=== PATIENT | male | born 1940 | race Hispanic/Latino ===

== ENCOUNTER 2021-12-10 18:09 | Emergency (ER) | payer MEDICARE ==
[2021-12-10 22:08] LABS: Basophils % (Auto) 0.6 % (0.0-1.8); Eosinophils # (Auto) 0.2 K/mm3 (0.0-0.4); Eosinophils % (Auto) 3.3 % (0.0-4.3); Hematocrit 43.1 % (35.5-45.6); Hemoglobin 14.9 gm/dl (11.8-15.2); Lymphocytes % (Auto) 19.2 % (13.4-35.0); Mean Corpuscular HGB Conc 35 % (32-34); Mean Corpuscular Volume 85 fl (84-94); Monocytes # (Auto) 0.7 K/mm3 (0.0-0.8); Monocytes % (Auto) 13.8 % (0.0-7.3); Platelet Count 126 K/mm3 (140-440); Red Blood Count 5.08 M/mm3 (3.65-5.03); Red Cell Distribution Width 16.1 % (13.2-15.2)
[2021-12-10 22:23] LABS: Calcium 9.5 mg/dL (8.4-10.2)
[2021-12-10 23:09] VITALS: BP 137/67
--- NOTE | 2021-12-10 23:29 | Emergency Department Report ---
ED General Adult HPI - General Chief complaint: Hyperglycemia Stated complaint: WEAKNESS/BLOOD SUGAR OVER 600 Time Seen by Provider: 12/10/21 20:06 Source: patient, EMS Mode of arrival: Stretcher Limitations: No Limitations - History of Present Illness Initial comments: 81-year-old male with history of type 2 diabetes, self-reported chronic kidney disease (patient states his GFR is "about 32" sent in from his primary care doctor's office for evaluation of hyperglycemia. Patient has no symptoms. He states that he had blood work drawn by his doctor today and when he received a call from his doctor's office, he was told that his sugar was greater than 600. He admittedly administered 16 units of insulin to himself prior to arrival. He denies any chest pain shortness of breath difficulty breathing or palpitations. Reports overall decreased p.o. intake due to some ongoing family stressors. Denies any thoughts of hurting himself or others, no auditory visual loose Nations. Pain 0-10. MD Complaint: hyperglycemia -: Gradual Radiation: other (none) Severity scale (0 -10): 0 Quality: other (none) Consistency: other (none) Improves with: other (none) Worsens with: other (none) Associated Symptoms: other Treatments Prior to Arrival: other (humalog insulin 16units) - Related Data Allergies Allergy/AdvReac Type Severity Reaction Status Date / Time No Known Allergies Allergy Unverified 12/10/21 18:28 ED Review of Systems ROS: Stated complaint: WEAKNESS/BLOOD SUGAR OVER 600 Other details as noted in HPI Comment: All other systems reviewed and negative Constitutional: no symptoms reported Eyes: as per HPI ENT: as per HPI Respiratory: no symptoms reported Cardiovascular: as per HPI Endocrine: no symptoms reported Gastrointestinal: as per HPI Genitourinary: as per HPI Musculoskeletal: as per HPI Skin: as per HPI Neurological: as per HPI Psychiatric: as per HPI Hematological/Lymphatic: as per HPI ED Past Medical Hx - Past Medical History Previous Medical History?: Yes Hx Hypertension: Yes Hx CVA: No Hx Heart Attack/AMI: No Hx Congestive Heart Failure: No Hx Diabetes: Yes Hx Deep Vein Thrombosis: No Hx Pulmonary Embolism: No Hx GERD: No Hx Liver Disease: No Hx Renal Disease: Yes (pt states GFR is 32) Hx of Cancer: No Hx Sickle Cell Disease: No Hx Arthritis: No Hx Headaches / Migraines: No Hx Seizures: No Hx Kidney Stones: No Hx Psychiatric Treatment: No Hx Asthma: No Hx COPD: No Hx Tuberculosis: No Hx Dementia: No Hx HIV: No - Surgical History Past Surgical History?: No Hx Coronary Stent: No Hx Open Heart Surgery: No Hx Pacemaker: No Hx Internal Defibrillator: No Hx Cholecystectomy: No Hx Appendectomy: No Hx Breast Surgery: No - Social History Smoking Status: Former Smoker Substance Use Type: None ED Physical Exam - General Limitations: No Limitations General appearance: alert, in no apparent distress - Head Head exam: Present: atraumatic, normocephalic, normal inspection - Eye Eye exam: Present: normal appearance, PERRL, EOMI. Absent: scleral icterus, conjunctival injection, nystagmus, periorbital swelling, periorbital tenderness, other Pupils: Absent: normal accommodation, irregular, unequal, miosis, mydriatic - ENT ENT exam: Present: normal exam, normal orophraynx, mucous membranes moist. Absent: mucous membranes dry, TM's normal bilaterally, normal external ear exam - Neck Neck exam: Present: normal inspection. Absent: tenderness, meningismus, full ROM, lymphadenopathy, thyromegaly - Respiratory Respiratory exam: Present: normal lung sounds bilaterally. Absent: respiratory distress, wheezes, rales, rhonchi, stridor, chest wall tenderness, accessory muscle use, decreased breath sounds - Cardiovascular Cardiovascular Exam: Present: regular rate, normal rhythm, normal heart sounds. Absent: bradycardia, tachycardia, irregular rhythm, systolic murmur, diastolic murmur, rubs, gallop, clicks, JVD, S3, S4 - GI/Abdominal GI/Abdominal exam: Present: soft, distended, tenderness, guarding, rebound - Rectal Rectal exam: Present: deferred - Extremities Exam Extremities exam: Present: normal inspection, full ROM, normal capillary refill. Absent: tenderness, pedal edema, joint swelling, calf tenderness - Back Exam Back exam: Present: normal inspection, full ROM. Absent: tenderness, CVA tenderness (R), CVA tenderness (L), muscle spasm, rash noted - Neurological Exam Neurological exam: Present: alert, oriented X3, CN II-XII intact, normal gait, motor sensory deficit, reflexes normal - Psychiatric Psychiatric exam: Present: normal affect, normal mood. Absent: depressed, agitated, anxious, flat affect, manic, homicidal ideation, suicidal ideation - Skin Skin exam: Present: warm, dry, intact, normal color. Absent: rash, cyanosis, diaphoretic, urticaria, vesicles, petechiae, pallor, abrasion, ecchymosis ED Course Vital Signs 12/10/21 12/10/21 12/10/21 18:24 18:44 20:41 Temperature 98.6 F Pulse Rate 68 61 Respiratory 16 21 Rate Blood Pressure Blood Pressure 138/67 [Left] O2 Sat by Pulse 99 100 96 Oximetry 12/10/21 12/10/21 12/10/21 21:08 21:11 21:16 Temperature 98.1 F Pulse Rate 80 64 Respiratory 18 Rate Blood Pressure 151/70 150/75 Blood Pressure [Left] O2 Sat by Pulse 98 Oximetry 12/10/21 12/10/21 12/10/21 21:30 22:00 22:30 Temperature Pulse Rate 63 67 61 Respiratory 20 12 19 Rate Blood Pressure 144/65 144/62 137/67 Blood Pressure [Left] O2 Sat by Pulse 98 97 96 Oximetry - Reevaluation(s) Reevaluation #1: 12/10/21 22:32 pt is well appearing; denies any complaints ED Medical Decision Making - Lab Data Result diagrams: 12/10/21 21:41 12/10/21 21:41 - EKG Data When compared to previous EKG there are: no significant change - Medical Decision Making 81-year-old male with multi medical comorbidities presents for evaluation of hyperglycemia. Vital signs stable. Serum labs reviewed. Patient's BUN and creatinine are 41 and 2.0, respectively. There is no documented baseline for comparison. However patient reports he does have "chronic kidney disease." And he does not know his baseline serum creatinine. Patient given normal saline here for volume repletion and for management of hyperglycemia. His sugar reduced appropriately. He has no elevated anion gap metabolic acidosis and no other significant electrolyte derangements. Patient advised to talk to his primary care doctor concerning his creatinine today as it is unclear if this is consistent with his prior creatinine which the patient stated had resulted earlier today from blood work that was performed by his primary care doctor's office. He is extremely well-appearing, hemodynamically stable and neurovascularly intact. No further emergent work-up warranted at this time. Patient deemed stable for discharge to home. Critical care attestation.: If time is entered above; I have spent that time in minutes in the direct care of this critically ill patient, excluding procedure time. ED Disposition Clinical Impression: Hyperglycemia Disposition: 01 HOME / SELF CARE / HOMELESS Is pt being admited?: No Condition: Stable Referrals: KIRK FIELD MD [Primary Care Provider] - 3-5 Days
== END 2021-12-10 23:35 | disposition home or self-care (01) ==
LOC: ED 18:09
DX: E11.65 Type 2 diabetes mellitus with hyperglycemia (principal); I12.9 Hypertensive chronic kidney disease with stage 1 through stage 4 chronic kidney disease, or unspecified chronic kidney disease; E11.22 Type 2 diabetes mellitus with diabetic chronic kidney disease; N18.9 Chronic kidney disease, unspecified; Z87.891 Personal history of nicotine dependence
CPT/HCPCS: 36415; 80048; 82962; 85025; 99284